=== PATIENT | male | born 1975 | race African-American/Black ===

== ENCOUNTER → 2023-11-09 10:45 | Outpatient (CLI) | payer OTHER, SELFPAY ==
--- NOTE | 2023-11-09 10:49 | DI.MRI.S_ITS ---
PROCEDURE: MR LUMBAR SPINE WO CON INDICATIONS: LOW BACK PAIN TECHNIQUE: Noncontrast sagittal T1 spin echo and T2 fast echo, sagittal STIR, and T2 fast spin echo through the lumbar spine. In cases with scoliosis, additional coronal T2 fast spin echo may be performed. COMPARISON: None. FINDINGS: Image quality: Excellent. Please note partially lumbarized S1. The last well-formed disc space is considered as L5-S1 Alignment and Curvature: There is normal bony alignment. Bone Marrow: Marrow is of normal overall signal. No acute vertebral body compression fractures. Spinal Cord: Conus medullaris terminates at the L1-2 level. Visualized cord demonstrates normal signal and size. Paraspinous Soft Tissues: No paravertebral masses. T12-L1: Normal appearance. L1-L2: Normal appearance. L2-L3: Normal appearance. L3-L4: Normal appearance. L4-L5: Mild left foraminal disc protrusion, resulting in abutment of the exiting left L4 nerve root and mild left neural foraminal stenosis. No right neural foraminal stenosis. No central canal stenosis. L5-S1: Mild disc bulge. Mild bilateral facet arthropathy. No central canal stenosis. Mild left neural foraminal stenosis. No right neural foraminal stenosis. Small amount of fluid between the posterior spinal process of L5-S1. Visualized sacrum is unremarkable. No abdominal aortic aneurysm. IMPRESSION: 1. Partially lumbarized S1. 2. 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 Dictated by: Emmy Dan M.D. on 11/09/2023 at 14:19 Approved by: Emmy Dan M.D. on 11/09/2023 at 14:29
== END ==
PROVIDERS: PCP Family Medicine; Referring Provider Family Medicine; Visit Provider Family Medicine
DX: M47.816 Spondylosis without myelopathy or radiculopathy, lumbar region (principal); M47.817 Spondylosis without myelopathy or radiculopathy, lumbosacral region; M48.061 Spinal stenosis, lumbar region without neurogenic claudication; M48.07 Spinal stenosis, lumbosacral region; M54.50 Low back pain, unspecified
CPT/HCPCS: 72148

== ENCOUNTER → 2024-09-05 07:11 | Outpatient (CLI) | payer OTHER, SELFPAY ==
--- NOTE | 2024-09-05 17:34 | DI.NM.S_ITS ---
DATE OF SERVICE: 09/05/2024 EXERCISE TREADMILL STRESS TEST PROCEDURE: Exercise treadmill stress test without imaging. ORDERING PROVIDER: Rosendo Barnett MD INDICATIONS: The patient is a 49-year-old male with frequent PVCs. FINDINGS: 1. The patient was able to exercise for 9 minutes 53 seconds on a standard Valdemar protocol suggesting fairly good exercise capacity with an KATIA of -5%, achieving 12.8 METs. 2. He had a normal heart rate and blood pressure response to exercise, achieving a maximum heart rate of 180 bpm (107% of his predicted maximum). 3. He had no chest discomfort or other anginal symptoms. 4. His resting ECG shows sinus rhythm at 91 bpm with occasional PVCs, rarely in couplets, but normal ST segments. With stress, there are no significant ST segment shifts. The frequency of his PVCs improves with stress, resolving at peak exercise, but returns in recovery yet without any complex ventricular ectopy. IMPRESSION: 1. Normal exercise treadmill stress test for ischemia. 2. Good exercise capacity without angina. 3. Occasional PVCs at rest, rarely in couplets, improving with stress, and returning in recovery but without other complex ventricular ectopy. Delroy Sepulveda - RS/fn/ID doc#: [id number]/job#: [id number] dd: 09/05/2024 17:03:00 dt: 09/05/2024 17:27:00 DICTATING /COPIES TO: Baron Stark MD; Rosendo Barnett MD COPIES MNE: KEN;
== END ==
PROVIDERS: PCP Family Medicine; Referring Provider Internal Medicine; Visit Provider Internal Medicine
DX: I49.3 Ventricular premature depolarization (principal)
CPT/HCPCS: 93017

== ENCOUNTER → 2024-09-14 07:43 | Outpatient (CLI) | payer OTHER, SELFPAY ==
--- NOTE | 2024-09-14 07:44 | DI.ECHO.S_ITS ---
[facility] : : [id number] : : [place] : : [id number] : : Phone: [phone] Echocardiogram Report + + :Name: CECILLE CIFUENTES Study Date: 09/14/2024 Height: 72 in : :[facility] ReadingLocation: Weight: 218 lb : : Gender: Male BSA: 2.2 m2 : :: 1975 Age: 49 yrs BP: 157/95 mmHg: :Reason For Study: VENTRICULAR PREMATURE DEPLOARIZATION : :Ordering Physician: IVETH BARNETT Performed By: Lay Levin : :Referring: IVETH BARNETT : + + Interpretation Summary 1. The left ventricular contractility is normal. Estimate ejection fraction is greater than 65% with no segmental wall motion abnormalities. No LVH. Normal diastolic function. 2. The right ventricular contractility is normal. 3. Borderline right ventricular enlargement. All other cardiac chambers are of normal size. 4. No significant valvular abnormalities. 5. No obvious intracardiac shunts. 6. No obvious intracardiac masses nor thrombi. 7. No hemodynamically significant pericardial effusion. 8. Low right-sided filling pressures. Conclusion: Normal biventricular function with no significant valvular abnormalities. Borderline right ventricle enlargement may be due to technical acquisition. Procedure: A two-dimensional transthoracic echocardiogram with color flow and Doppler was performed. The study quality was technically adequate. There is no prior echocardiogram noted for this patient. The patient was in sinus rhythm with heart rates between 73-89 bpm during the exam. The patient had frequent PVCs during the exam. Left Ventricle: The left ventricle is normal in size and wall thickness. The ejection fraction is estimated to be 65-70%. Right Ventricle: The right ventricle is borderline dilated. The right ventricular systolic function is normal. Atria: The left atrial size is normal. Right atrial size is normal. There is no Doppler evidence for an interatrial shunt. Mitral Valve: The mitral valve leaflets appear to open well. There is trace mitral regurgitation. Aortic Valve: The aortic valve is trileaflet. The aortic valve opens well. There is no aortic valve stenosis. No aortic regurgitation is present. Tricuspid Valve: The tricuspid valve leaflets are thin and pliable. No tricuspid regurgitation. Pulmonary artery pressures cannot be estimated because of the lack of a measurable TR jet velocity. Pulmonic Valve: The pulmonic valve leaflets are thin and pliable; valve motion is normal. There is trace pulmonic regurgitation. Great Vessels: The aortic root is normal size. The dimensions of the ascending aorta are normal. The IVC is of normal diameter and collapses greater than 50% with a sniff. This suggests a low right atrial pressure of 3 mm Hg. Pericardium/ Pleura There is no pericardial effusion. There is no pleural effusion. MMode/2D Measurements & Calculations LVIDd: 4.9 cm LVOT diam: 1.9 cm LVIDs: 3.3 cm Ao root diam: 3.1 cm FS: 32.8 % asc Aorta Diam: 2.9 cm IVSd: 0.81 cm Ao Arch Diam (Prox Trans): 1.8 cm LVPWd: 1.0 cm LV singh. diameter/BSA (cm/m^2): 2.2 LV sys. diameter/BSA (cm/m^2): 1.5 LA A2 area: 18.8 cm2 RA long axis: 4.9 cm LA A4 area: 20.4 cm2 RA area: 14.4 cm2 LA length (vol): 5.7 cm RA vol: 35.5 ml LA vol: 57.6 ml RA : 16.1 ml/m2 LA vol index: 26.1 ml/m2 IVC diam: 1.5 cm RVD1 (basal): 4.1 cm RVD2 (mid): 3.5 cm TAPSE: 2.7 cm Doppler Measurements & Calculations Ao V2 max: 173.4 cm/sec LVOT Max Boris: 114.9 cm/sec Ao V2 mean: 116.1 cm/sec LV V1 max P.4 mmHg Ao max P.2 mmHg LV V1 VTI: 24.1 cm Ao mean P.1 mmHg LAKISHA(I,D): 2.4 cm2 Ao V2 VTI: 29.7 cm LAKISHA(V,D): 2.0 cm2 sev ratio: 0.81 LAKISHA indexed to BSA (cm^2/m^2): 1.1 MV E max boris: 74.1 cm/sec PA V2 max: 105.7 cm/sec MV A max boris: 71.0 cm/sec PA V2 mean: 67.0 cm/sec MV E/A: 1.0 PA mean P.1 mmHg Med Peak E' Boris: 10.1 cm/sec PA pr(Accel): 34.0 mmHg E/E' med: 7.3 Lat Peak E' Boris: 10.7 cm/sec E/E' lat: 6.9 E/e' average: 7.1 MV dec time: 0.22 sec SVLVOT): 72.0 ml Reading Physician:SOFI
== END ==
PROVIDERS: PCP Family Medicine; Referring Provider Internal Medicine; Visit Provider Internal Medicine
DX: I49.3 Ventricular premature depolarization (principal)
CPT/HCPCS: 93306

== ENCOUNTER → 2025-05-03 08:31 | Outpatient (CLI) | payer OTHER, SELFPAY ==
--- NOTE | 2025-05-03 08:33 | DI.MRI.S_ITS ---
PROCEDURE: MR LUMBAR SPINE WO CON INDICATIONS: pain TECHNIQUE: Noncontrast sagittal T1 spin echo and T2 fast echo, sagittal STIR, and T2 fast spin echo through the lumbar spine. In cases with scoliosis, additional coronal T2 fast spin echo may be performed. COMPARISON: [facility], , MR LUMBAR SPINE WO CON, 11/09/2023, 11:03. FINDINGS: Image quality: Excellent. Alignment and Curvature: Straightening of the normal lumbar lordosis. Transitional vertebral body anatomy with lumbarization of S1. Bone Marrow: Marrow is of normal overall signal. No acute vertebral body compression fractures. Spinal Cord: Conus medullaris terminates at the L1-L2 level. Visualized cord demonstrates normal signal and size. Paraspinous Soft Tissues: No paravertebral masses. Trace fluid within the interspinous space at L5-S1. Similar to prior. T12-L1: Normal appearance. L1-L2: Normal appearance. L2-L3: Normal appearance. L3-L4: Normal appearance. L4-L5: Disc desiccation and mild disc bulge. No central canal stenosis. Mild left and no right neural foraminal stenosis. L5-S1: Disc desiccation and mild disc bulge. No central canal stenosis. Mild left and no right neural foraminal stenosis. IMPRESSION: Stable mild degenerative changes of the lower lumbar spine as described above. Redemonstration of transitional vertebral body anatomy. Dictated by: Adan Bates M.D. on 05/04/2025 at 13:19 Approved by: Adan Bates M.D. on 05/04/2025 at 13:22
== END ==
LOC: MRI 08:32
PROVIDERS: PCP Family Medicine; Referring Provider Physician Assistant; Visit Provider Physician Assistant
DX: S39.012A Strain of muscle, fascia and tendon of lower back, initial encounter (principal); M47.816 Spondylosis without myelopathy or radiculopathy, lumbar region; M53.3 Sacrococcygeal disorders, not elsewhere classified; M62.89 Other specified disorders of muscle; X58.XXXA Exposure to other specified factors, initial encounter
CPT/HCPCS: 72148